=== PATIENT | female | born 1995 | race Caucasian/White ===

== ENCOUNTER 2020-03-16 15:26 | Outpatient (CLI) | payer OTHER ==
[~2020-03-16 15:26] MED LIST: PRENATA CHEWAB1 EACH PO
== END 2020-03-16 19:37 | disposition home or self-care (01) ==
LOC: GENOP 15:26
DX: O16.2 Unspecified maternal hypertension, second trimester (principal); O26.892 Other specified pregnancy related conditions, second trimester; R51.9 Headache, unspecified; Z3A.21 21 weeks gestation of pregnancy
CPT/HCPCS: 81001; G0463

== ENCOUNTER 2020-05-21 16:04 | Outpatient (CLI) | payer OTHER | END 2020-05-21 19:32 | disposition home or self-care (01) | LOC: GENOP 16:04 | PROVIDERS: Obstetrics & Gynecology | DX: O36.8130 Decreased fetal movements, third trimester, not applicable or unspecified (principal); Z3A.30 30 weeks gestation of pregnancy | CPT/HCPCS: 80307; 81001; G0463 ==

== ENCOUNTER 2020-06-17 16:36 | Outpatient (CLI) | payer OTHER | END 2020-06-17 17:54 | disposition home or self-care (01) | LOC: GENOP 16:36 | DX: O99.891 Other specified diseases and conditions complicating pregnancy (principal); E86.9 Volume depletion, unspecified | CPT/HCPCS: 81001; 83518; G0463 ==

== ENCOUNTER 2020-06-19 14:19 | Outpatient (CLI) | payer OTHER ==
[~2020-06-19] VITALS: Ht 152.4 cm; Wt 104.3 kg
== END 2020-06-19 15:15 | disposition home or self-care (01) ==
LOC: GENOP 14:19
DX: O47.03 False labor before 37 completed weeks of gestation, third trimester (principal); Z3A.00 Weeks of gestation of pregnancy not specified
CPT/HCPCS: 59025; 96372; J0702

== ENCOUNTER 2020-06-25 18:04 | Outpatient (CLI) | payer OTHER | END 2020-06-26 01:21 | disposition home or self-care (01) | LOC: GENOP 18:04 | DX: O36.8120 Decreased fetal movements, second trimester, not applicable or unspecified (principal); O26.852 Spotting complicating pregnancy, second trimester; Z3A.21 21 weeks gestation of pregnancy; O9A.212 Injury, poisoning and certain other consequences of external causes complicating pregnancy, second trimester; W19.XXXA Unspecified fall, initial encounter | CPT/HCPCS: 59025; 83518; 96360; 96376; G0463; J7120 ==

== ENCOUNTER 2020-06-25 18:13 | Emergency (ER) | payer OTHER ==
[2020-06-25 20:08] LABS: RED BLOOD COUNT 4.71 M/UL (4.00-5.10); WHITE BLOOD COUNT 10.7 K/UL (4.5-11.0)
[2020-06-25 20:26] LABS: BUN/CREATININE RATIO 13 (0-10)
== END 2020-06-25 20:25 | disposition home or self-care (01) ==
LOC: ER1 18:13
PROVIDERS: Physician Assistant Medical
DX: O99.891 Other specified diseases and conditions complicating pregnancy (principal); R41.82 Altered mental status, unspecified; Z3A.35 35 weeks gestation of pregnancy
CPT/HCPCS: 80053; 81001; 85025; 86900; 86901; 99283

== ENCOUNTER 2020-07-06 05:21 | Inpatient (IN) | payer OTHER ==
[~2020-07-06] VITALS: Ht 152.4 cm; Wt 106.6 kg
[2020-07-06 05:51] LABS: HEMOGLOBIN 12.9 gm/dl (12.3-15.3); RED BLOOD COUNT 4.7 M/UL (4.00-5.10); WHITE BLOOD COUNT 9.2 K/UL (4.5-11.0)
[2020-07-06] MEDS ORDERED: DOCUSATE SODIU100 MG PO (13:42)
[2020-07-06] MEDS ORDERED: TYLENOL EXTRA500 MG PO (13:42)
[2020-07-06] MEDS ORDERED: IBUPROFEN800 MG PO (13:42)
[2020-07-07 05:50] LABS: HEMOGLOBIN 11.6 gm/dl (12.3-15.3)
== END 2020-07-07 14:43 | disposition home or self-care (01) | DRG 807 ==
LOC: OB 05:21
PROVIDERS: Obstetrics & Gynecology; ADMIT Obstetrics & Gynecology
PROC: 10E0XZZ Delivery of Products of Conception, External Approach (ICD-10-PCS; principal; 2020-07-06)
PROC: 3E033VJ Introduction of Other Hormone into Peripheral Vein, Percutaneous Approach (ICD-10-PCS; 2020-07-06)
PROC: 10907ZC Drainage of Amniotic Fluid, Therapeutic from Products of Conception, Via Natural or Artificial Opening (ICD-10-PCS; 2020-07-06)
PROC: 0U7C7ZZ Dilation of Cervix, Via Natural or Artificial Opening (ICD-10-PCS; 2020-07-06)
PROC: 4A1HXCZ Monitoring of Products of Conception, Cardiac Rate, External Approach (ICD-10-PCS; 2020-07-06)
DX: O36.5930 Maternal care for other known or suspected poor fetal growth, third trimester, not applicable or unspecified (principal); Z37.0 Single live birth; O13.4 Gestational [pregnancy-induced] hypertension without significant proteinuria, complicating childbirth; Z20.822 Contact with and (suspected) exposure to COVID-19; Z3A.37 37 weeks gestation of pregnancy; O99.214 Obesity complicating childbirth; E66.9 Obesity, unspecified
CPT/HCPCS: 36415; 81001; 82800; 85014; 85018; 85025; 90715; J2590; J2795; U0002